=== PATIENT | female | born 1950 | race Caucasian/White ===

== ENCOUNTER 2023-08-25 13:28 | Day surgery (SDC) | payer MEDICARE, OTHER ==
[~2023-08-25] VITALS: Ht 160 cm; Wt 72.8 kg
[~2023-08-25 13:28] MED LIST: ASPIRIN 81M81 MG/TA2 PO; CALCIUM-MAGNES1 EAC1 PO; ELIQUIS 5MG PO; IRON TABLETS325 MG PO; LIPITOR 40MG TA40 MG PO; LR 1,000 ML IV SCH; MELATONIN5 M1 SL; NEURONTIN300 MG/CAP PO; NORVASC2.5 MG PO; Ondansetron 4 MG/2 ML VIAL IV PRN; PRINIVIL40 MG PO; VITAMIN C500 MG PO
[2023-08-25] MEDS ORDERED: CYMBALTA 60MG60 MG PO ×2 (13:54)
[2023-08-25 14:25] VITALS: BP 137/84; PULSE 94; TEMP 97.6
[2023-08-25] MEDS ORDERED: Lidocaine PF 2% (20 MG/ML) 5 ML VIAL ONE (14:32)
[2023-08-25 15:30] VITALS: BP 145/93; PULSE 85; TEMP 97.3
--- NOTE | 2023-08-25 15:30 | NUR ---
PATIENT AMBULATED TO CHAIR WITH STEADY GAIT, ASSIST OF 2. ALERT AND AWAKE. DENIES PAIN, NAUSEA AND SHORTNESS OF BREATH. BREATHING REGULAR AND UNLABORED ON ROOM AIR. SKIN WARM AND DRY. IV IN PLACE. NURSE HANDOFF COMPLETED IN ROOM. SEE CHART FOR VITAL SIGNS. PATIENT HAD WATER AND CHOCOLATE PUDDING. BOTH FOOD AND DRINK TOLERATED WELL. NO DYSPHAGIA. CALL LIGHT IN REACH.
[2023-08-25 15:45] VITALS: BP 158/82; PULSE 73
[2023-08-25 16:00] VITALS: BP 153/75; PULSE 76
[2023-08-25 16:15] VITALS: BP 151/74; PULSE 77
--- NOTE | 2023-08-25 16:27 | NUR ---
1541: MET WITH PATIENT IN ROOM TO DISCUSS PROCEDURE. 1611: PATIENT STATED THAT HER SON, SCHUYLER, COULD BE GIVEN INFORMATION REGARDING HER CARE AND PROCEDURE TODAY. SPOKE WITH SCHUYLER OVER THE PHONE TO DISCUSS PROCEDURE. 1619: DISCHARGE TEACHING COMPLETED WITH PRINTED EDUCATION AND INSTRUCTIONS SENT HOME WITH PATIENT. PATIENT VERBALIZED UNDERSTANDING OF TEACHING. 1621: PATIENT DENIES PAIN, NAUSEA AND SHORTNESS OF BREATH. IV REMOVED. GAUZE AND COBAN PLACED OVER SITE. 1627: PATIENT DISCHARGED HOME WITH [facility].
[2023-08-26] MEDS ORDERED: Ondansetron 4 MG/2 ML VIAL IV PRN (09:30)
== END 2023-08-25 16:27 | disposition home or self-care (01) ==
LOC: SDCO 13:28
DX: K25.9 Gastric ulcer, unspecified as acute or chronic, without hemorrhage or perforation (principal); K26.9 Duodenal ulcer, unspecified as acute or chronic, without hemorrhage or perforation; D64.9 Anemia, unspecified; K57.30 Diverticulosis of large intestine without perforation or abscess without bleeding; K64.0 First degree hemorrhoids; K44.9 Diaphragmatic hernia without obstruction or gangrene; R19.5 Other fecal abnormalities; K59.00 Constipation, unspecified; R53.83 Other fatigue; K62.5 Hemorrhage of anus and rectum; I10 Essential (primary) hypertension; Z79.01 Long term (current) use of anticoagulants; Z79.899 Other long term (current) drug therapy
CPT/HCPCS: J2704; J7120

== ENCOUNTER 2024-01-08 08:57 | Outpatient (RCR) | payer MEDICARE, OTHER ==
[~2024-01-08] VITALS: Ht 160 cm; Wt 72.9 kg
[~2024-01-08 08:57] MED LIST changes: +CYMBALTA 60MG60 MG PO; -LR 1,000 ML IV SCH; -Ondansetron 4 MG/2 ML VIAL IV PRN; +PROLIA60 MG/ML SQ; +PROTONIX 40MG T40 MG PO; +TYLENOL 500MG500 MG PO; +WELLBUTRIN XL150 MG PO
[2024-01-08 09:09] VITALS: BP 132/80; PULSE 70; TEMP 98.3
[2024-01-08] MEDS ORDERED: Iron Sucrose 200 MG in NS 100 ML Over 15 minutes IV ONE (09:15)
[2024-01-08 09:40] VITALS: BP 100/57; PULSE 60
--- NOTE | 2024-01-08 09:52 | NUR ---
PT TOLERATED INFUSION WELL. VS REMAINED WITHIN NORMAL LIMITS. PT REMAINED FREE FROM ACUTE CONCERNS AND COMPLAINTS UPON DISCHARGE. PT AMBULATED INDEPENDENTLY TO MAIN LOBBY. IV DISCONTINUED.
== END 2024-01-08 10:00 | disposition home or self-care (01) ==
LOC: EUO 08:57
DX: D50.9 Iron deficiency anemia, unspecified (principal)
CPT/HCPCS: J1756